=== PATIENT | female | born 1965 | race Caucasian/White ===

== ENCOUNTER 2017-07-20 14:11 | Emergency (ER) | payer MEDICARE ==
[~2017-07-20] VITALS: Ht 160 cm; Wt 75.6 kg
[~2017-07-20 14:11] MED LIST: AMOXICILLIN500 M1 PO; ASPIRIN81 M1 PO; HYDROCHLOROTH12.5 M1 PO; NORVASC5 MG PO; PAXIL30 MG PO; SYNTHROID25 MCG PO; vit d
[2017-07-20 14:49] LABS: HEMATOCRIT 41.7 % (36.0-46.0); HEMOGLOBIN 13.9 G/DL (11.9-15.5); MCH 29.2 PG (29.0-34.0); MCHC 33.3 G/DL (30.0-36.0); MCV 87.6 FL (83-99); PLATELET COUNT 266 K/uL (156-360); RBC DIS.WIDTH-CV 13.2 % (11.8-14.6); RBC DIS.WIDTH-SD 42.3 % (39-53); RED BLOOD COUNT 4.76 M/uL (3.80-5.20); WHITE BLOOD COUNT 8.6 K/uL (4.1-10.2)
[2017-07-20 15:02] LABS: CHLORIDE 102 mEq/L (99-109); POTASSIUM 3.7 mEq/L (3.7-5.4); SODIUM 139 mEq/L (136-147)
[2017-07-20 15:03] LABS: GLUCOSE 186 mg/dL (70-99)
[2017-07-20 15:07] LABS: GFR ESTIMATE (CALCULATED) > 59 mL/min/
[2017-07-20 15:08] LABS: UREA NITROGEN (BUN) 14 mg/dL (9-23)
[2017-07-20 15:32] LABS: APPEARANCE SL.HAZY ((CLEAR)); BILIRUBIN NEGATIVE; BLOOD NEGATIVE; COLOR YELLOW ((YELLOW)); GLUCOSE (STRIP) NEGATIVE; KETONES NEGATIVE; LEUKOCYTES MODERATE; NITRITE NEGATIVE; PROTEIN (STRIP) NEGATIVE; UROBILINOGEN 0.2 MG/DL (0.2-1.0)
[2017-07-20 15:41] LABS: BACTERIA 1+ /HPF; EPITHELIAL CELLS 3+ /HPF; MUCUS TRACE /LPF; RED BLOOD CELLS 0-5 /HPF (0-5); UCUL ADDED? YES; WHITE BLOOD CELLS 30-40 /HPF (0-5)
[2017-07-20 16:41] LABS: ALBUMIN 4.3 g/dL (3.2-4.8)
[2017-07-20 16:46] LABS: TOTAL BILIRUBIN 0.4 mg/dL (0.0-1.0)
[2017-07-20 16:47] LABS: ALKALINE PHOSPHATASE 111 IU/L (3-129)
[2017-07-20 16:48] LABS: APPEARANCE CLEAR ((CLEAR)); BILIRUBIN NEGATIVE; BLOOD NEGATIVE; COLOR YELLOW ((YELLOW)); GLUCOSE (STRIP) NEGATIVE; KETONES NEGATIVE; LEUKOCYTES MODERATE; NITRITE NEGATIVE; PROTEIN (STRIP) NEGATIVE; SPECIFIC GRAVITY 1.019 (1.000-1.030); UROBILINOGEN 0.2 MG/DL (0.2-1.0)
[2017-07-20 16:49] LABS: AST (GOT) 19 IU/L (2-34); DIRECT BILIRUBIN 0.1 mg/dL (0.0-0.3)
[2017-07-20 16:50] LABS: ALT (GPT) 28 IU/L (3-49); LIPASE 68 U/L (1.0-51.0)
[2017-07-20 17:28] LABS: BACTERIA RARE /HPF; EPITHELIAL CELLS RARE /HPF; MUCUS TRACE /LPF; RED BLOOD CELLS 0-5 /HPF (0-5); WHITE BLOOD CELLS 20-30 /HPF (0-5)
[2017-07-20] MEDS ORDERED: FLOMAX0.4 MG PO (18:23)
[2017-07-20] MEDS ORDERED: ZOFRAN ODT4 MG PO (18:23)
[2017-07-20] MEDS ORDERED: KEFLEX500 MG PO (18:23)
[2017-07-20] MEDS ORDERED: NORCO 10/3251 TABLET PO (18:23)
[2017-07-20] MEDS ORDERED: MOTRIN800 MG PO (18:23)
[2017-07-20 18:57] VITALS: BP 141/81
== END 2017-07-20 18:57 | disposition home or self-care (01) ==
LOC: EME 14:11
PROVIDERS: Physician Assistant
DX: N20.1 Calculus of ureter (principal); N39.0 Urinary tract infection, site not specified; I10 Essential (primary) hypertension; E78.5 Hyperlipidemia, unspecified; F32.9 Major depressive disorder, single episode, unspecified; Z87.891 Personal history of nicotine dependence; Z87.442 Personal history of urinary calculi; Z79.82 Long term (current) use of aspirin; Z91.040 Latex allergy status; Z88.1 Allergy status to other antibiotic agents; Z88.2 Allergy status to sulfonamides
CPT/HCPCS: 74176; 80048; 80076; 81003; 83690; 85027; 87077; 87086; 87186; 99281; 99284; J0696

== ENCOUNTER → 2018-01-20 | Outpatient (CLI) | payer MEDICARE ==
[~2018-01-20] MED LIST changes: +FLOMAX0.4 MG PO; +KEFLEX500 MG PO; +MOTRIN800 MG PO; +NORCO 10/3251 TABLET PO; +ZOFRAN ODT4 MG PO
== END | disposition home or self-care (01) ==
LOC: CDC 14:21
DX: Z01.810 Encounter for preprocedural cardiovascular examination (principal); C50.911 Malignant neoplasm of unspecified site of right female breast; Z17.0 Estrogen receptor positive status [ER+]; R94.31 Abnormal electrocardiogram [ECG] [EKG]
CPT/HCPCS: 93000

== ENCOUNTER 2018-02-19 05:10 | Day surgery (SDC) | payer MEDICARE ==
[~2018-02-19] VITALS: Ht 160 cm; Wt 69.4 kg
[~2018-02-19 05:10] MED LIST changes: +GLUCOPHAGE1000 MG PO; +LIPITOR40 MG PO; +OZEMPIC0.25 MG/0. SC; +POTASSIUM CITR10 MEQ PO; +SYNTHROID137 MCG PO
[2018-02-19 06:01] VITALS: BP 134/77
[2018-02-19 18:18] VITALS: BP 122/72
[2018-02-19 19:24] VITALS: BP 150/74
[2018-02-20 00:08] VITALS: BP 140/68
[2018-02-20 03:37] VITALS: BP 157/74
[2018-02-20 06:03] LABS: HEMATOCRIT 36.2 % (36.0-46.0); MCH 28.4 PG (29.0-34.0); MCHC 33.1 G/DL (30.0-36.0); MCV 85.6 FL (83-99); RBC DIS.WIDTH-CV 13.3 % (11.8-14.6); RBC DIS.WIDTH-SD 41.6 % (39-53); RED BLOOD COUNT 4.23 M/uL (3.80-5.20); WHITE BLOOD COUNT 9.5 K/uL (4.1-10.2)
[2018-02-20 06:10] LABS: PLATELET COUNT 155 K/uL (156-360)
[2018-02-20 08:17] VITALS: BP 112/61
[2018-02-20] MEDS ORDERED: KEFLEX500 MG PO (08:49)
[2018-02-20] MEDS ORDERED: ENDOCET 5-3251 EACH PO (08:49)
[2018-02-20 11:54] VITALS: BP 134/78
== END 2018-02-20 14:04 | disposition home or self-care (01) ==
LOC: SDC 05:10 → NUC 07:00 → 2EASTP 15:18 → 2SOUTH 15:18 → ENRESERV 16:15 → 2EASTP 17:53
PROVIDERS: Surgery
PROC: 07B60ZX Excision of Left Axillary Lymphatic, Open Approach, Diagnostic (ICD-10-PCS; principal; 2018-02-19)
PROC: 0HHV0NZ Insertion of Tissue Expander into Bilateral Breast, Open Approach (ICD-10-PCS; principal; 2018-02-19)
PROC: 0HBV0ZZ Excision of Bilateral Breast, Open Approach (ICD-10-PCS; principal; 2018-02-19)
DX: C50.911 Malignant neoplasm of unspecified site of right female breast (principal); C50.912 Malignant neoplasm of unspecified site of left female breast; Z17.0 Estrogen receptor positive status [ER+]; I10 Essential (primary) hypertension; E11.9 Type 2 diabetes mellitus without complications; Z87.891 Personal history of nicotine dependence; Z79.84 Long term (current) use of oral hypoglycemic drugs; R94.31 Abnormal electrocardiogram [ECG] [EKG]
CPT/HCPCS: 71045; 78195; 78999; 82948; 85027; 88305; 88307; 88309; A9541; G0378; J0131; J0690; J1170; J2250; J2270; J2405; J3010; J7120; Q0175; S0020